=== PATIENT | male | born 1995 | race Caucasian/White ===

== ENCOUNTER 2019-03-23 06:04 | Emergency (ER) | payer OTHER ==
[~2019-03-23] VITALS: Ht 175.3 cm; Wt 79.2 kg
[2019-03-23] MEDS ORDERED: CONC36TA4 PO (06:20)
[2019-03-23] MEDS ORDERED: REME15TA2 PO (06:20)
[2019-03-23 07:07] LABS: BASO % 0.4 % (0.0-1.0); EOS # 0.1 10^3/uL (0.0-0.5); EOS % 0.8 % (0.0-3.0); HEMATOCRIT 43.9 % (42.0-52.0); HEMOGLOBIN 15.7 g/dl (13.5-17.5); LYMPH # 2.4 10^3/uL (1.5-5.0); MEAN CORPUSCULAR HEMOGLOBIN 30.7 pg (27.0-33.0); MEAN CORPUSCULAR HGB CONC 35.8 g/dl (32.0-36.5); MEAN CORPUSCULAR VOLUME 85.9 fl (80.0-96.0); MONO # 0.5 10^3/uL (0.0-0.8); MONO % 5.4 % (0.0-5.0); NEUTROPHILS # 5.6 10^3/uL (1.5-8.5); NEUTROPHILS % 65.2 % (36.0-66.0); PLATELET COUNT, AUTOMATED 269 10^3/uL (150-450); RED BLOOD COUNT 5.11 10^6/uL (4.30-6.10); WHITE BLOOD COUNT 8.6 10^3/uL (4.0-10.0)
[2019-03-23 07:32] LABS: ALBUMIN 4.8 GM/DL (3.2-5.2); ALT/SGPT 26 U/L (12-78); BLOOD UREA NITROGEN 18 MG/DL (7-18); CALCIUM LEVEL 9.5 MG/DL (8.5-10.1); CARBON DIOXIDE LEVEL 28 MEQ/L (21-32); CHLORIDE LEVEL 104 MEQ/L (98-107); CREATININE FOR GFR 1.21 MG/DL (0.70-1.30); GLOMERULAR FILTRATION RATE > 60.0 (>60); GLUCOSE, FASTING 96 MG/DL (70-100); POTASSIUM SERUM 3.9 MEQ/L (3.5-5.1); SODIUM LEVEL 138 MEQ/L (136-145); TOTAL PROTEIN 7.6 GM/DL (6.4-8.2)
[2019-03-23] MEDS ORDERED: ERYTHROMYCIN OPHTH OINT OS ONE (08:30)
[2019-03-23 09:18] VITALS: BP 140/88
[2019-03-23] MEDS ORDERED: ERYT1OIN26 OS (09:39)
[2019-03-23 12:24] LABS: HEPATITIS B SURFACE ANTIBODY POSITIVE (POSITIVE); HEPATITIS B SURFACE ANTIGEN NEGATIVE (NEGATIVE)
[2019-03-23 12:52] LABS: HEPATITIS C VIRUS ABY INDEX 0.1 INDEX (<0.8)
[2019-03-23 12:53] LABS: HIV 1&2 SCREEN CENTAUR NEGATIVE (NEGATIVE)
== END 2019-03-23 09:42 | disposition home or self-care (01) ==
LOC: M ED 06:04
DX: Z77.21 Contact with and (suspected) exposure to potentially hazardous body fluids (principal); Z88.0 Allergy status to penicillin; Z79.899 Other long term (current) drug therapy